=== PATIENT | female | born 1970 | race Caucasian/White ===

== ENCOUNTER 2017-01-02 07:06 | Outpatient (CLI) | payer BC | END 2017-01-02 07:07 | disposition home or self-care (01) | DX: Z13.1 Encounter for screening for diabetes mellitus (principal) ==

== ENCOUNTER 2020-06-19 12:34 | Outpatient (CLI) | payer OTHER | END 2020-06-19 12:35 | disposition home or self-care (01) | LOC: LAB.S 12:34 | PROVIDERS: ATTEND Family Medicine | DX: Z11.1 Encounter for screening for respiratory tuberculosis (principal) | CPT/HCPCS: 36415; 81599; 86480 ==